=== PATIENT | male | born 2000 | race Caucasian/White ===

== ENCOUNTER 2018-12-18 20:36 | Emergency (ER) | payer OTHER ==
[~2018-12-18] VITALS: Ht 177.8 cm; Wt 75.8 kg
[~2018-12-18 20:36] MED LIST: ALBU90OI INH; AMOX500 PO; Augmentin 875-1 EACH PO; Flonase 0.05% N16 GM; IBUP600 PO; Keflex500 MG PO; METPRE4DP PO; Prednisone20 MG PO; Zofran Odt4 MG SL
[2018-12-18] MEDS ORDERED: PENVK500 PO (21:02)
== END 2018-12-18 21:08 | disposition home or self-care (01) ==
LOC: ER 20:36
DX: J02.0 Streptococcal pharyngitis (principal); Z88.1 Allergy status to other antibiotic agents
CPT/HCPCS: 87430; 99282; J1100

== ENCOUNTER 2019-02-26 17:25 | Emergency (ER) | payer OTHER ==
[~2019-02-26] VITALS: Ht 177.8 cm; Wt 75.8 kg
[~2019-02-26 17:25] MED LIST changes: +PENVK500 PO
[2019-02-26] MEDS ORDERED: PENVK500 PO (18:01)
[2019-02-26] MEDS ORDERED: Naprosyn500 MG PO (18:01)
== END 2019-02-26 18:07 | disposition home or self-care (01) ==
LOC: ER 17:25
DX: K08.89 Other specified disorders of teeth and supporting structures (principal); R59.1 Generalized enlarged lymph nodes; Z87.891 Personal history of nicotine dependence; Z88.1 Allergy status to other antibiotic agents
CPT/HCPCS: 99282

== ENCOUNTER 2019-06-11 04:57 | Emergency (ER) | payer OTHER ==
[~2019-06-11] VITALS: Ht 175.3 cm; Wt 74.8 kg
[~2019-06-11 04:57] MED LIST changes: +Naprosyn500 MG PO
== END 2019-06-11 06:03 | disposition home or self-care (01) ==
LOC: ER 04:57
DX: S80.02XA Contusion of left knee, initial encounter (principal); F17.200 Nicotine dependence, unspecified, uncomplicated; Z88.1 Allergy status to other antibiotic agents; W21.03XA Struck by baseball, initial encounter
CPT/HCPCS: 73560-LT; 96372; 99283-25; J1885

== ENCOUNTER 2019-06-18 15:08 | Emergency (ER) | payer OTHER ==
[~2019-06-18] VITALS: Ht 175.3 cm; Wt 74.8 kg
== END 2019-06-18 16:19 | disposition home or self-care (01) ==
LOC: ER 15:08
DX: M25.562 Pain in left knee (principal); F17.200 Nicotine dependence, unspecified, uncomplicated; W22.8XXA Striking against or struck by other objects, initial encounter
CPT/HCPCS: 99283

== ENCOUNTER 2020-02-05 15:54 | Emergency (ER) | payer OTHER ==
[~2020-02-05] VITALS: Ht 177.8 cm; Wt 79.4 kg
[2020-02-05] MEDS ORDERED: Bactrim Ds Tab1 EACH PO (16:49)
[2020-02-05] MEDS ORDERED: Keflex500 MG PO (16:49)
[2020-02-05] MEDS ORDERED: Norco 5-325 Ta1 EACH PO (16:50)
== END 2020-02-05 17:00 | disposition home or self-care (01) ==
LOC: ER 15:54
DX: L03.116 Cellulitis of left lower limb (principal); S91.114A Laceration without foreign body of right lesser toe(s) without damage to nail, initial encounter; Z88.1 Allergy status to other antibiotic agents; Z87.891 Personal history of nicotine dependence; X58.XXXA Exposure to other specified factors, initial encounter
CPT/HCPCS: 99283

== ENCOUNTER 2022-04-21 05:51 | Emergency (ER) | payer OTHER ==
[~2022-04-21] VITALS: Ht 177.8 cm; Wt 90.7 kg
[~2022-04-21 05:51] MED LIST changes: +Bactrim Ds Tab1 EACH PO; +Norco 5-325 Ta1 EACH PO
[2022-04-21] MEDS ORDERED: ALPR1 PO (07:01)
== END 2022-04-21 07:18 | disposition home or self-care (01) ==
LOC: ER 05:51
DX: F41.9 Anxiety disorder, unspecified (principal); Z87.891 Personal history of nicotine dependence
CPT/HCPCS: A9270

== ENCOUNTER 2025-02-07 18:40 | Emergency (ER) | payer OTHER ==
[~2025-02-07] VITALS: Ht 172.7 cm; Wt 104.3 kg
[~2025-02-07 18:40] MED LIST changes: +ALPR1 PO; +GABA300 PO; +LIDO700A20 TOP
[2025-02-07] MEDS ORDERED: Ketorolac Tromethamine 15mg Vial IV ONE (18:55)
[2025-02-07 19:13] LABS: BASOPHILS ABSOLUTE AUTO 0.04 K/mm3 (0.00-0.23); BASOPHILS PERCENT AUTO 0 % (0-2); EOSINOPHILS ABSOLUTE AUTO 0.26 K/mm3 (0.00-0.68); EOSINOPHILS PERCENT AUTO 3 % (0-6); Hematocrit 40.8 % (37.0-53.0); Hemoglobin 14.4 g/dL (13.5-17.5); IMMATURE GRAN ABSOLUTE AUTO 0.03 K/mm3 (0.00-0.10); IMMATURE GRAN PERCENT AUTO 0 % (0-1); LYMPHOCYTES ABSOLUTE AUTO 3.19 K/mm3 (0.84-5.20); LYMPHOCYTES PERCENT AUTO 31 % (21-46); MONOCYTES ABSOLUTE AUTO 0.89 K/mm3 (0.16-1.47); MONOCYTES PERCENT AUTO 9 % (4-13); Mean Corpuscular HGB 29.9 pg (26.0-34.0); Mean Corpuscular HGB Conc 35.3 g/dL (31.5-36.5); Mean Corpuscular Volume 85 fL (80-100); Mean Platelet Volume 8.8 fL (9.1-12.4); NEUTROPHILS ABSOLUTE AUTO 5.96 K/mm3 (1.96-9.15); NEUTROPHILS PERCENT AUTO 57 % (41-73); Platelet Count 288 K/mm3 (150-400); RDW Coefficient Variation 11.8 % (11.7-14.2); RDW Standard Deviation 35.8 fL (35.1-46.3); Red Blood Cell Count 4.81 M/mm3 (4.30-5.90); White Blood Cell Count 10.37 K/mm3 (4.00-11.30)
[2025-02-07 19:35] LABS: Albumin, Blood 3.9 g/dL (3.4-5.0); Bilirubin, Total 0.8 mg/dL (0.1-1.0); Bun/Creatinine Ratio 9.5 (12.0-20.0); Calcium, Blood 8.7 mg/dL (8.5-10.1); Creatinine, Blood 0.95 mg/dL (0.60-1.20); Globulin, Blood 4.1 g/dL (2.2-4.0); Potassium, Blood 3.7 mmol/L (3.5-5.5)
[2025-02-07] MEDS ORDERED: FentaNYL Citrate 50 MCG/ML 2 ML Injection IV ONE (22:30)
[2025-02-07] MEDS ORDERED: AMOCLA875 PO (23:14)
[2025-02-07] MEDS ORDERED: Amoxicillin/Clavulanate K 875 MG Tab PO ONE (23:35)
[2025-02-07 23:46] VITALS: BP 141/88
== END 2025-02-07 23:46 | disposition home or self-care (01) ==
LOC: ER 18:40
PROVIDERS: Student in an Organized Health Care Education/Training Program
DX: K61.2 Anorectal abscess (principal); K61.0 Anal abscess; F17.290 Nicotine dependence, other tobacco product, uncomplicated; Z88.1 Allergy status to other antibiotic agents; Z88.8 Allergy status to other drugs, medicaments and biological substances
CPT/HCPCS: 46040; 72193; 80053; 83690; 85025; 96374-59; 99284-25; A9270; J3010; Q9967